=== PATIENT | female | born 1995 | race Caucasian/White ===

== ENCOUNTER 2017-01-30 14:38 | Emergency (ER) | payer MEDICAID ==
[~2017-01-30] VITALS: Ht 160 cm; Wt 68.0 kg
[~2017-01-30 14:38] MED LIST: CIPR-217 PO
[2017-01-30 15:00] VITALS: BP 127/58
== END 2017-01-30 18:49 | disposition left against medical advice (07) ==
LOC: ER 14:43
DX: S09.90XA Unspecified injury of head, initial encounter (principal); Z53.21 Procedure and treatment not carried out due to patient leaving prior to being seen by health care provider; Y09 Assault by unspecified means

== ENCOUNTER 2018-02-16 15:27 | Emergency (ER) | payer SELFPAY ==
[~2018-02-16] VITALS: Ht 162.6 cm; Wt 65.8 kg
[2018-02-16 15:35] VITALS: BP 134/95
== END 2018-02-16 17:21 | disposition home or self-care (01) ==
LOC: ER 15:31
DX: Z20.7 Contact with and (suspected) exposure to pediculosis, acariasis and other infestations (principal)

== ENCOUNTER 2018-02-21 03:45 | Emergency (ER) | payer SELFPAY ==
[~2018-02-21] VITALS: Ht 160 cm; Wt 65.8 kg
[2018-02-21 04:21] LABS: Urine WBC None Seen /hpf (0 - 5)
[2018-02-21 04:44] LABS: Urine Bacteria NONE SEEN /hpf (None Seen); Urine Blood Negative /uL (Negative); Urine Specific Gravity 1.002 (1.001-1.035)
[2018-02-21 04:52] LABS: Amphetamine Screen, Urine NEGATIVE (NEGATIVE); Barbiturate Scree,Urine NEGATIVE (NEGATIVE); Benzodiazephine Screen, Urine NEGATIVE (NEGATIVE); Cannabinoid Screen, Urine POSITIVE (NEGATIVE); Cocaine Screen, Urine NEGATIVE (NEGATIVE); Opiate Scree,Urine NEGATIVE (NEGATIVE); Phencyclidine Screen, Urine NEGATIVE (NEGATIVE)
[2018-02-21] MEDS ORDERED: LORazepam 0.5 MG TAB PO ONE (05:00)
[2018-02-21] MEDS ORDERED: SODIUM CHLORIDE 0.9% 1,000 ML IV ONE (07:30)
[2018-02-21 07:37] LABS: Basophils # (auto) 0.1 uL; Basophils % (auto) 0.8 % (0.0-2.0); Eosinophils # (auto) 0.3 uL; Eosinophils % (auto) 3.3 % (0.0-7.0); Hematocrit 43.1 % (36.0-46.0); Hemoglobin 14.7 g/dL (12.2-16.2); Lymphocytes # (auto) 2.7 uL; Lymphocytes % (auto) 34.4 % (10.0-50.0); Mean Corpuscular Hgb Conc. 34.1 g/dL (32.0-36.0); Monocytes # (auto) 0.7 uL; Monocytes % (auto) 9.2 % (0.0-12.0); Neutrophils # (auto) 4.1 uL; Neutrophils % (auto) 52.3 % (37.0-80.0); Nucleated Red Blood Cells % 0.2 %; Platelet Count (auto) 229 10^3/uL (140-450); Red Blood Cells 4.74 10^6/uL (4.0-5.20); Red Cell Distribution Width 12.6 % (11.8-14.3); White Blood Cell 7.9 10^3/uL (4.4-10.8)
[2018-02-21 07:45] LABS: Calcium 8.3 mg/dL (8.5-10.1); Magnesium 2.3 mg/dL (1.6-2.6); Potassium 3.6 mmol/L (3.5-5.1)
[2018-02-21 07:48] LABS: BUN/Creatinine Ratio 6.3; Bilirubin, Total 0.4 mg/dL (0.2-1.0); Total Protein 7.7 g/dL (6.4-8.2)
[2018-02-21 07:49] LABS: Salicylate < 1.7 mg/dL (2.8-20.0)
[2018-02-21 07:52] LABS: Acetaminophen < 2.0 ug/mL (10-30)
[2018-02-21] MEDS ORDERED: MULTIPLE VITAMIN 10 ML, MAGNESIUM SULF SDV 50% 8 MEQ in SODIUM CHLORIDE 0.9% 1,000 ML IV SCH (12:00)
[2018-02-21 15:53] VITALS: BP 108/82
== END 2018-02-21 16:06 | disposition home or self-care (01) ==
LOC: EDBD 03:45 → ER 03:54
DX: S10.91XA Abrasion of unspecified part of neck, initial encounter (principal); F10.129 Alcohol abuse with intoxication, unspecified; F12.10 Cannabis abuse, uncomplicated; Z87.440 Personal history of urinary (tract) infections; X78.1XXA Intentional self-harm by knife, initial encounter; Y93.89 Activity, other specified; Y92.098 Other place in other non-institutional residence as the place of occurrence of the external cause; Y99.8 Other external cause status; Y90.9 Presence of alcohol in blood, level not specified
CPT/HCPCS: 36415; 80053; 80307; 80320; 80329; 81001; 81025; 83735; 85025; 94761; 96365; 96366; 99283; J3475; J7030

== ENCOUNTER 2018-11-08 16:12 | Emergency (ER) | payer MEDICAID ==
[~2018-11-08] VITALS: Ht 162.6 cm; Wt 72.6 kg
[2018-11-08] MEDS ORDERED: KETOROLAC TROMETH 60MG/2ML VIAL IM ONE (19:15)
[2018-11-08] MEDS ORDERED: METHOCARBAMOL 500 MG TAB PO ONE (19:15)
[2018-11-08 20:13] VITALS: BP 124/81
== END 2018-11-08 20:18 | disposition home or self-care (01) ==
LOC: ER 16:12
DX: S63.502A Unspecified sprain of left wrist, initial encounter (principal); M54.5 Low back pain; R07.9 Chest pain, unspecified; F12.90 Cannabis use, unspecified, uncomplicated; Z79.899 Other long term (current) drug therapy; V47.5XXA Car driver injured in collision with fixed or stationary object in traffic accident, initial encounter; Y93.89 Activity, other specified; Y99.8 Other external cause status; Y92.89 Other specified places as the place of occurrence of the external cause
CPT/HCPCS: 72070; 72100; 73110; 93005; 96372; 99283; J1885

== ENCOUNTER 2023-03-12 15:52 | Emergency (ER) | payer MEDICAID ==
[~2023-03-12] VITALS: Ht 165.1 cm; Wt 78.5 kg
[~2023-03-12 15:52] MED LIST changes: -CIPR-217 PO; +CIPR500T4 PO
[2023-03-12 18:03] LABS: Basophils # (auto) 0.1 10 ^3/uL (0-0.2); Basophils % (auto) 0.9 % (0.0-2.0); Eosinophils # (auto) 0.1 10 ^3/uL (0-0.8); Eosinophils % (auto) 2.4 % (0.0-7.0); Hemoglobin 13.8 g/dL (12.2-16.2); Mean Corpuscular Hemoglobin 31.1 pg (28.0-32.0); Mean Corpuscular Hgb Conc. 33.7 g/dL (32.0-36.0); Mean Corpuscular Volume 92.3 fL (80.0-100.0); Monocytes # (auto) 0.7 10 ^3/uL (0-1.3); Monocytes % (auto) 11.7 % (0.0-12.0); Neutrophils # (auto) 3.9 10 ^3/uL (1.6-8.6); Red Blood Cells 4.45 10^6/uL (4.0-5.20); Red Cell Distribution Width 12.9 % (11.8-14.3); White Blood Cell 5.8 10^3/uL (4.4-10.8)
[2023-03-12 18:21] LABS: Alanine Aminotransferase 12 U/L (7-40); Albumin 4.6 g/dL (3.2-4.8); Alkaline Phosphatase 58 U/L (46-116); Anion Gap 5 (5-15); Aspartate Aminotransferase 11 U/L (13-40); BUN/Creatinine Ratio 12.2 (10.0-20.0); Bilirubin, Total 0.4 mg/dL (0.2-1.0); Blood Urea Nitrogen 9 mg/dL (9-23); Calcium 9.3 mg/dL (8.7-10.4); Carbon Dioxide 27 mmol/L (20-30); Chloride 109 mmol/L (98-107); Glucose 70 mg/dL (74-106); Potassium 4.1 mmol/L (3.5-5.1); Sodium 141 mmol/L (136-145); Total Protein 6.9 g/dL (5.7-8.2)
[2023-03-12 22:05] LABS: Urine Bacteria NONE SEEN /hpf (None Seen); Urine Blood Negative /uL (Negative); Urine Clarity Clear (Clear); Urine Color Colorless (Yellow); Urine Protein, UAD Negative (Negative); Urine Specific Gravity 1.015 (1.001-1.035); Urine Urobilinogen Normal (Negative); Urine WBC 1 /hpf (0 - 5)
[2023-03-12] MEDS ORDERED: ZOFR4T PO (22:30)
[2023-03-12] MEDS ORDERED: MEDR5TAB28 PO (22:30)
[2023-03-12] MEDS ORDERED: HYDR-4902 PO (22:30)
[2023-03-12] MEDS ORDERED: HYDROcodone-ACET 5/325MG TAB PO ONE (22:30)
[2023-03-12] MEDS ORDERED: medroxyPROGESTERone ACETATE 5 MG TAB PO ONE (22:30)
[2023-03-12] MEDS ORDERED: ONDANSETRON ODT 4 MG TAB PO ONE (22:30)
[2023-03-12 22:50] VITALS: BP 118/48; PULSE 95; RESP 18; O2SAT 97
== END 2023-03-12 23:00 ==
LOC: ER 15:52
DX: N93.9 Abnormal uterine and vaginal bleeding, unspecified (principal); R10.2 Pelvic and perineal pain; Z79.899 Other long term (current) drug therapy; Z79.2 Long term (current) use of antibiotics
CPT/HCPCS: 36415; 76856; 80053; 81001; 84702; 85025; 86850; 86900; 86901; Q0162